=== PATIENT | female | born 1995 | race American Indian/Alaskan Native ===

== ENCOUNTER 2021-03-26 08:27 | Outpatient (CLI) | payer MEDICARE ==
--- NOTE | 2021-03-26 09:53 | Ultrasound Report ---
ULTRASOUND BREAST BILATERAL LIMITED, 03/26/2021 CLINICAL INFORMATION / INDICATION: Bilateral palpable lumps associated with pain.. TECHNIQUE: Targeted ultrasound evaluation was performed of the area of interest. COMPARISON: None. FINDINGS: Sonographic evaluation of the right breast reveals no abnormality. In the area of the palpable lump, 12:00, there is no mass, cyst, or focal area of shadowing. Normal lymph nodes are identified in the r ight axilla. Sonographic evaluation of the left breast at 3:00, area of palpable lump reveals no abnormality. No m ass, cyst, or area of shadowing identified. The entire lateral left breast was evaluated without sono graphic abnormality identified. Normal lymph nodes were present in the left axilla. IMPRESSION: No sonographic evidence of malignancy. No sonographic abnormality noted in the area of pa lpable lumps/pain bilaterally. Clinical correlation for history of bilateral palpable lumps and bilat eral breast pain is recommended. Follow up recommendation: Clinical correlation BI-RADS Category 2: Benign. A normal or "negative" report should not preclude biopsy or follow-up of a clinically suspicious find ing. Signer Name: Little Wing MD Signed: 03/26/2021 9:48 AM Workstation Name: [id number]
== END 2021-03-26 08:28 | disposition home or self-care (01) ==
LOC: SPVWC 08:27
PROVIDERS: ATTEND Surgery
DX: N63.12 Unspecified lump in the right breast, upper inner quadrant (principal); N63.23 Unspecified lump in the left breast, lower outer quadrant